=== PATIENT | female | born 2000 | race Caucasian/White ===

== ENCOUNTER → 2022-09-21 07:45 | Outpatient (BNVA) | payer SELFPAY | PROVIDERS: Visit Provider Obstetrics & Gynecology | DX: O09.90 Supervision of high risk pregnancy, unspecified, unspecified trimester (principal) | CPT/HCPCS: 80307; 81000; 85027; 86592; 86762; 86803; 86850; 86900; 87086; 87340; 87806 ==

== ENCOUNTER → 2022-09-28 10:07 | Outpatient (BNVA) | payer SELFPAY | PROVIDERS: Visit Provider Obstetrics & Gynecology | DX: Z36.89 Encounter for other specified antenatal screening (principal); Z3A.23 23 weeks gestation of pregnancy | CPT/HCPCS: 76805 ==

== ENCOUNTER → 2022-10-04 15:09 | Outpatient (BNVA) | payer SELFPAY | PROVIDERS: Visit Provider Obstetrics & Gynecology | DX: Z34.00 Encounter for supervision of normal first pregnancy, unspecified trimester (principal) | CPT/HCPCS: 81000 ==

== ENCOUNTER 2022-10-27 16:10 | Outpatient (CLI) | payer SELFPAY ==
[2022-10-27 16:48] VITALS: BP 129/75; PULSE 88
[2022-10-27 16:50] VITALS: RESP 16; TEMP 37
--- NOTE | 2022-10-27 16:50 | USR_ITS ---
PROCEDURE INFORMATION: Exam: US , Limited Exam date and time: 10/27/2022 5:09 PM Age: 22 years old Clinical indication: Lmp or gestational age (in weeks): 28w3d; Antepartum complications; Other: Decreased movement, add growth scan, measuring small; LABS AND CLINICAL REPORTS: Last menstrual period start date: 04/11/2022 Gestational age (Established): 28 w 3 d Estimated due date (Established): 01/16/2023 TECHNIQUE: Imaging protocol: Real-time ultrasound of the maternal uterus with image documentation. Exam focused on the clinical indication. COMPARISON: US OB >= 14 weeks fetus [id number] 09/28/2022 10:14 AM FINDINGS: Gestation: movement is visualized. heart rate: 141 bpm presentation: Breech presentation. Placenta: The placenta is posterior and unremarkable. BIOMETRY: Gestational age (AUA): 27 w 0 d. Single live intrauterine gestation with good cardiac activity and calculated gestational age of 27 weeks 0 days. Estimated weight: 1021 g, 54th percentile Biparietal diameter (BPD): 6.43 cm. EGA (BPD) is 26 w 0, less than 2%tile Head circumference (HC): 25.33 cm, 5th percentile. EGA (HC) is 27 w 4 d Abdominal circumference (AC): 22.91 cm. EGA (AC) is 27 w 2 d, 13th percentile Femur length (FL): 4.98 cm. EGA (FL) is 26 w 6 d Cephalic Index (CI): 69.4 % HC/AC: 1.11 FL/HC: 19.7 % FL/BPD: 77.4 % FL/AC: 21.7 % BIOPHYSICAL PROFILE: breathing movement (BPP): No breathing. MATERNAL: Cervix: Cervical length measures 3.26 cm. Other findings: Biophysical profile 08/10. US/US OB lmt w/ BPP wo NST IMPRESSION: 1. Single live intrauterine gestation with good cardiac activity and calculated gestational age of 27 weeks 0 days. 2. Biophysical profile 08/10. No breathing. 3. Breech presentation. Good movement.
[2022-10-27 16:56] VITALS: BMI 24.6
[2022-10-27 17:03] VITALS: BP 122/69; PULSE 89
== END 2022-10-27 18:30 | disposition home or self-care (01) ==
LOC: OPOB 16:21 → OBGYN 16:24
PROVIDERS: Visit Provider Obstetrics & Gynecology
DX: O36.8130 Decreased fetal movements, third trimester, not applicable or unspecified (principal); Z3A.28 28 weeks gestation of pregnancy; Z36.4 Encounter for antenatal screening for fetal growth retardation
CPT/HCPCS: 36415; 59025; 76815; 76819; 81000; 82950; 85025; 99211

== ENCOUNTER → 2022-11-08 08:40 | Outpatient (BNVA) | payer SELFPAY | PROVIDERS: Visit Provider Obstetrics & Gynecology | DX: Z34.00 Encounter for supervision of normal first pregnancy, unspecified trimester (principal) | CPT/HCPCS: 81000; 82951; 82952 ==

== ENCOUNTER 2022-11-20 02:31 | Outpatient (CLI) | payer SELFPAY ==
[2022-11-20] VITALS (23 sets, daily range): BP systolic 99–136; BP diastolic 51–76; PULSE 88–134; RESP 18–20
[2022-11-20 03:07] LABS: Add Urine Culture? No; Amorphous Sediment Urine 1+ /hpf; Bilirubin Urine Neg (Negative); Blood Urine Neg (Negative); Glucose Urine UA Norm (Normal); Ketones Urine 2+ (Negative); Leukocyte Esterase Urine Negative (Negative); Nitrate Urine Negative (Negative); Protein Urine Neg (Negative); Specific Gravity, Urine 1.015 (1.005-1.030); Urine Appearance Hazy (CLEAR); Urine Color Yellow (Yellow); Urobilinogen Urine Neg (Negative); pH Urine 9 (5-7)
[2022-11-20 03:10] LABS: Sulfosalicylic Acid Urine Negative (Negative)
[2022-11-20] MEDS: NIFEdipine 10 mg Capsule 30 MG PO (03:10)
[2022-11-20] MEDS: betamethasone susp 6 mg/mL 1 mL (per mL) 12 MG IM (03:11)
[2022-11-20] MEDS: lactated ringers 1,000 ML 125 ML IV (03:15)
[2022-11-20] MEDS: cefTRIAXone 1,000 MG in sodium chloride 0.9% (plus) 50 ML 100 MG IV (03:15)
[2022-11-20] MEDS: acetaminophen 500 mg Tablet 1000 MG PO (04:12)
[2022-11-20 04:48] LABS: Basophils % 0.3 %; Eosinophils % 0.1 %; Hematocrit 34.4 % (36-47); Lymphocytes # 1.7 10^3/uL (0.8-4.8); Lymphocytes % 11.8 %; Mean Corpuscular HGB Conc 34.3 g/dL (30-55); Mean Corpuscular Hemoglobin 30.4 pg (27-33); Mean Corpuscular Volume 88.7 fl (85-98); Mean Platelet Volume 9.6 fL (7.4-10.4); Monocytes # 1.1 10^3/uL (0.2-0.9); Monocytes % 7.6 %; Neutrophils # 11.33 10^3/uL (1.8-7.7); Neutrophils % 79.8 %; Nucleated Red Blood Cells % 0 %; Platelet Count 263 10^3/cmm (157-399); Red Blood Count 3.88 10^6/uL (3.85-5.65); Red Cell Distribution Width 12.1 % (12.1-15.1); White Blood Count 14.21 10^3/uL (3.29-11.43)
[2022-11-20] MEDS: magnesium sulfate premix 4 GM/100 ML PREMIX IV (05:01)
[2022-11-20] MEDS: magnesium sulfate premix 20 GM/500 ML BAG IV (05:21)
== END 2022-11-20 06:21 | disposition other institution (70) ==
LOC: OPOB 02:32 → OBGYN 02:33
PROVIDERS: Visit Provider Obstetrics & Gynecology
DX: O26.899 Other specified pregnancy related conditions, unspecified trimester (principal); Z3A.00 Weeks of gestation of pregnancy not specified; R10.30 Lower abdominal pain, unspecified
CPT/HCPCS: 51702; 59025; 81001; 85025; 96372; 99211; J0696; J0702; J3475; J7120

== ENCOUNTER → 2022-11-30 14:00 | Outpatient (BNVA) | payer SELFPAY | PROVIDERS: Visit Provider Obstetrics & Gynecology | DX: Z34.00 Encounter for supervision of normal first pregnancy, unspecified trimester (principal) | CPT/HCPCS: 81000 ==

== ENCOUNTER → 2022-12-07 14:18 | Outpatient (BNVA) | payer SELFPAY | PROVIDERS: Visit Provider Obstetrics & Gynecology | DX: Z34.00 Encounter for supervision of normal first pregnancy, unspecified trimester (principal) | CPT/HCPCS: 76816; 76820; 81000 ==

== ENCOUNTER → 2022-12-13 15:30 | Outpatient (BNVA) | payer SELFPAY | PROVIDERS: Visit Provider Obstetrics & Gynecology | DX: Z34.00 Encounter for supervision of normal first pregnancy, unspecified trimester (principal) | CPT/HCPCS: 81000 ==

== ENCOUNTER → 2022-12-20 16:00 | Outpatient (BNVA) | payer SELFPAY | PROVIDERS: Visit Provider Obstetrics & Gynecology | DX: Z34.00 Encounter for supervision of normal first pregnancy, unspecified trimester (principal) | CPT/HCPCS: 81000; 87081 ==

== ENCOUNTER → 2022-12-27 16:04 | Outpatient (BNVA) | payer SELFPAY | PROVIDERS: Visit Provider Nurse Practitioner Women's Health | DX: Z34.00 Encounter for supervision of normal first pregnancy, unspecified trimester (principal) | CPT/HCPCS: 81000 ==

== ENCOUNTER → 2023-01-03 14:55 | Outpatient (BNVA) | payer SELFPAY | PROVIDERS: Visit Provider Obstetrics & Gynecology | DX: Z34.00 Encounter for supervision of normal first pregnancy, unspecified trimester (principal) | CPT/HCPCS: 81000 ==

== ENCOUNTER 2023-01-06 05:26 | Inpatient (IN) | payer SELFPAY ==
[2023-01-06] VITALS (15 sets, daily range): BP systolic 107–135; BP diastolic 65–87; PULSE 72–96; RESP 16; TEMP 36.2; BMI 25.7
[2023-01-06 07:35] LABS: Basophils % 0.2 %; Eosinophils # 0.1 10^3/uL (0.0-0.8); Eosinophils % 0.5 %; Hematocrit 35.2 % (36-47); Lymphocytes # 2.9 10^3/uL (0.8-4.8); Lymphocytes % 25.9 %; Mean Corpuscular HGB Conc 33.8 g/dL (30-55); Mean Corpuscular Hemoglobin 29.8 pg (27-33); Mean Platelet Volume 9.7 fL (7.4-10.4); Monocytes # 0.9 10^3/uL (0.2-0.9); Monocytes % 7.8 %; Neutrophils # 7.22 10^3/uL (1.8-7.7); Neutrophils % 65.1 %; Nucleated Red Blood Cells % 0 %; Platelet Count 250 10^3/cmm (157-399); Red Cell Distribution Width 12.5 % (12.1-15.1); White Blood Count 11.07 10^3/uL (3.29-11.43)
--- NOTE | 2023-01-06 11:05 | P.HP_ITS ---
Providers/Chief Complaint Admitting Physician: Edgar Holly MD Primary GEAR CUTTING MACHINE SET UP OPERATOR: Edgar Holly MD Chief Complaint: Possible contractions HPI GEAR CUTTING MACHINE SET UP OPERATOR History of Present Illness 22 y.o. G1 Unknown LMP,? possibly April 11, 2022 EDC by unsure LMP??? January 16, 2023 Consistent with 23 week sono done September 28, 2022 At 38 w 4 d Presents to L&D c/o painful UCs No bleeding or fluid leakage Feels active movements Was transferred to [place] November 20, 2022 at 32 weeks for labor Was in hospital there for five days Cervix was 3.5 cm at discharge Was told to do accuchecks All accucheck values normal Present Details : 1 Para: 0 Medications/Allergies Home Medications Medication Instructions Recorded Confirmed Last Taken Type vitamin no.102-iron 90 1 cap PO DAILY 10/27/22 01/06/23 1 Day Ago History mg-folate 1 mg-dha 200 mg capsule ~01/05/23 Allergies Allergy/AdvReac Type Severity Reaction Status Date / Time N/A Allergy N/A Uncoded 01/03/23 14:57 PFSH GEAR CUTTING MACHINE SET UP OPERATOR PFSH: Medical History No pertinent past medical history neghx:htn,dm,thyroid,dvt/pe PCP: none Surgical History No pertinent past surgical history Family History Denies family history of Colon cancer Ovarian cancer Diabetes Heart disease Hyperlipidemia Breast cancer Hypertension Uterine cancer Thyroid disease Stroke History History History 1 Term Miscarriages/Ectopic Living Children Care KIANA Calculator Estimated Delivery Date Method Current WG Current Estimate 01/16/23 LMP (Uncertain) 38w 4d Other Estimates 01/24/23 Ultrasound #1 37w 3d Specific Issues/Plans * LATE TO CARE- care began at 23wk * RUBELLA NONIMMUNE- recommend PP vaccination * UTERINE SIZE/DATE DISCREPANCY Vitals/I&O/Wt Last Vital Signs Temp 97.2 F L 01/06/23 05:44 Pulse 81 01/06/23 14:20 Resp 16 01/06/23 07:20 BP 120/69 01/06/23 14:20 Weight last 48 hrs Weight 132 lb Physical Exam Narrative: Weight ? 130?? lbs;? 5? VS? normal Awake, alert, appropriate Lungs:? clear Cor:? RRR FH? 32 cm Cervix:? 4 cm / 90 / -1 / mid External monitor:? heart tracing good variability,? + accelerations Data 01/06/23 07:05 Results Labs OB ([facility]): Obstetrics US 12/07/22 Obstetrics US/Biophysical Profile Blood Type A Positive 09/21/22 Antibody Screen Negative 09/21/22 Hct 35.2 % (36-47) L 01/06/23 Hgb 11.90 g/dL (11.27-16.99) 01/06/23 Rho(D) Type Positive 09/21/22 Plt Count 250 10^3/cmm (157-399) 01/06/23 Hep Bs Antigen Non-reactive (Nonreactive) 09/21/22 Hepatitis C Antibody Non-reactive (Nonreactive) 09/21/22 Rubella IgG Antibody 0.2 IU/mL (0.0-10.0) 09/21/22 RPR Nonreactive (Nonreactive) 09/21/22 HIV 1&2 Ab & HIV 1 Ag Non-reactive (Non-Reactiv) 09/21/22 Gest Glucose Tolerance mg/dL 11/08/22 Urine Opiates Screen Negative ng/mL (Negative) 09/21/22 Ur Barbiturates Screen Negative ng/mL (Negative) 09/21/22 Ur Phencyclidine Scrn Negative ng/mL (Negative) 09/21/22 Ur Amphetamines Screen Negative ng/mL (Negative) 09/21/22 U Benzodiazepines Scrn Negative ng/mL (Negative) 09/21/22 Urine Cocaine Screen Negative ng/mL (Negative) 09/21/22 U Marijuana (THC) Screen Negative ng/mL (Negative) 09/21/22 Micro Urine Specimen 07/20/23 A&P Assessment and plan (1) Uterine contractions: 38 w 4 d Fetus reassuring Cx at 4 cm / -1 station Active labor Will admit Expectant management Attestations Medical Necessity Statement*: patient at 38 w 4 d, painful contractions, cervix at 4 cm Coding Level of Care Code Acute Code for Chg Fwd Diagnoses Uterine contractions O47.9 Time Spent (min) 30
--- NOTE | 2023-01-06 13:35 | PM.OBGYPN ---
DORMITORY SUPERVISOR Subjective Subjective: Interval history: January 06, 2023, 1335 Fetus reassuring UCs now occasional Patient comfortable, reports not having UCs Cervix by me:? 4 cm / 90 / -1 / mid Discussed with patient options of ? Waiting in hospital to see if she will progress ? Discharge home, which I do not recommend, since she is 4 cm dilated with ? head firmly in pelvis ? start labor augmentation such as artificial rupture of membranes and / or ? IV Pitocin Patient wants to wait in hospital Plan continue expectant management Labor: Station: 0 Amniotic Membrane Status: Intact Monitor Mode: External Contraction Pattern: Irregular Vitals/I&O/Wt Last Vital Signs Temp 97.2 F L 01/06/23 05:44 Pulse 81 01/06/23 14:20 Resp 16 01/06/23 07:20 BP 120/69 01/06/23 14:20 Weight last 48 hrs Weight 132 lb Data 01/06/23 07:05 A&P Assessment and plan (1) Uterine contractions: Attestations Medical Necessity Statement*: patient at 38 w 4 d, presented with painful contractions, cervix at 4 cm Coding Level of Care Code Acute Code for Chg Fwd Diagnoses Uterine contractions O47.9 Time Spent (min) 30
[2023-01-06] MEDS: acetaminophen 325 mg Tablet 650 MG PO (22:50)
[2023-01-07 01:29] VITALS: BP 112/70; PULSE 94
[2023-01-07 04:32] VITALS: BP 119/70; PULSE 92
[2023-01-07 09:56] VITALS: BP 119/70; PULSE 85
[2023-01-07 10:13] VITALS: BP 123/83; PULSE 86
--- NOTE | 2023-01-07 10:20 | P.PN_ITS ---
TAILINGS WORKER Subjective Subjective: Interval history: Fetus reassuring Occasional mild uterine contractions Cervix:?4 -5 cm / 90 / -1 Patient wants to go home I counseled patient that I personally would not recommend going home.? I would recommend augmenting labor.? Patient does not want labor augmentation. plan discharge home. Instructions given to return if contractions strong and regular, or if fluid leakage or bleeding Patient has f/u appointment for January 10, 2023 Labor: Station: 0 Amniotic Membrane Status: Intact Monitor Mode: External Contraction Pattern: Irregular Vitals/I&O/Wt Last Vital Signs Temp 97.2 F L 01/06/23 05:44 Pulse 86 01/07/23 10:13 Resp 16 01/06/23 07:20 BP 123/83 01/07/23 10:13 O2 Del Method Room Air 01/06/23 07:30 Weight last 48 hrs Weight 132 lb Data 01/06/23 07:05 A&P Assessment and plan (1) Uterine contractions: Attestations Medical Necessity Statement*: patient with mild uterine contractions, cervix has been stable at 4-5 cm, pa tient does not want labor augmentation, wants to go home. plan discharge home. Coding Level of Care Code Acute Code for Chg Fwd Diagnoses Uterine contractions O47.9 Time Spent (min) 30
--- NOTE | 2023-01-07 11:05 | P.DS_ITS ---
Discharge Providers WOOD FLOORING SPECIALIST Date of Admission: 01/06/23 05:26 Date of Discharge: 01/07/23 Attending Provider at Admission: Edgar Holly MD Attending Provider at Discharge: Edgar Holly MD Consults: none Primary WOOD FLOORING SPECIALIST: Edgar Holly MD Diagnoses at Discharge Discharge Diagnosis (1) Uterine contractions: Details from hospital stay: patient admitted with uterine contractions and cervix at 4 cm / 90 / -1 patient's uterine contractions decreased in frequency and intensity cervix remained at 4-5 cm patient refused labor augmentation fetus reassuring throughout patient wanted to go home patient was discharged home with labor precautions. Status: Acute Reason for Visit Reason for Visit: Possible contractions Brief History: 22 y.o. EDC January 16, 2023 Hospital Course Hospital Course patient admitted with uterine contractions and cervix at 4 cm / 90 / -1 patient's uterine contractions decreased in frequency and intensity cervix remained at 4-5 cm patient refused labor augmentation fetus reassuring throughout patient wanted to go home patient was discharged home with labor precautions. History History History 1 Term Miscarriages/Ectopic Living Children Discharge Data Studies Completed and Pending Laboratory Results WBC 11.07 10^3/uL (3.29-11.43) 01/06/23 07:05 RBC 4.00 10^6/uL (3.85-5.65) 01/06/23 07:05 Hgb 11.90 g/dL (11.27-16.99) 01/06/23 07:05 Hct 35.2 % (36-47) L 01/06/23 07:05 MCV 88.0 fl (85-98) 01/06/23 07:05 MCH 29.8 pg (27-33) 01/06/23 07:05 MCHC 33.8 g/dL (30-55) 01/06/23 07:05 RDW 12.5 % (12.1-15.1) 01/06/23 07:05 Plt Count 250 10^3/cmm (157-399) 01/06/23 07:05 MPV 9.7 fL (7.4-10.4) 01/06/23 07:05 Neut % (Auto) 65.1 % 01/06/23 07:05 Lymph % (Auto) 25.9 % 01/06/23 07:05 [place] % (Auto) 7.8 % 01/06/23 07:05 Eos % (Auto) 0.5 % 01/06/23 07:05 Baso % (Auto) 0.2 % 01/06/23 07:05 Neut # (Auto) 7.22 10^3/uL (1.8-7.7) 01/06/23 07:05 Lymph # (Auto) 2.9 10^3/uL (0.8-4.8) 01/06/23 07:05 [place] # (Auto) 0.9 10^3/uL (0.2-0.9) 01/06/23 07:05 Eos # (Auto) 0.1 10^3/uL (0.0-0.8) 01/06/23 07:05 Baso # (Auto) 0.0 10^3/uL (0.0-0.1) 01/06/23 07:05 Nucleated RBC % (auto) 0 % 01/06/23 07:05 Nucleated RBCs # 0.0 /100WBC 01/06/23 07:05 Procedures Performed monitoring Vitals Last Vital Signs Temp 97.2 F L 01/06/23 05:44 Pulse 86 01/07/23 10:13 Resp 16 01/06/23 07:20 BP 123/83 01/07/23 10:13 O2 Del Method Room Air 01/06/23 07:30 Results Labs OB ([facility]): Obstetrics US 12/07/22 Obstetrics US/Biophysical Profile Blood Type A Positive 09/21/22 Antibody Screen Negative 09/21/22 Hct 35.2 % (36-47) L 01/06/23 Hgb 11.90 g/dL (11.27-16.99) 01/06/23 Rho(D) Type Positive 09/21/22 Plt Count 250 10^3/cmm (157-399) 01/06/23 Hep Bs Antigen Non-reactive (Nonreactive) 09/21/22 Hepatitis C Antibody Non-reactive (Nonreactive) 09/21/22 Rubella IgG Antibody 0.2 IU/mL (0.0-10.0) 09/21/22 RPR Nonreactive (Nonreactive) 09/21/22 HIV 1&2 Ab & HIV 1 Ag Non-reactive (Non-Reactiv) 09/21/22 Gest Glucose Tolerance mg/dL 11/08/22 Urine Opiates Screen Negative ng/mL (Negative) 09/21/22 Ur Barbiturates Screen Negative ng/mL (Negative) 09/21/22 Ur Phencyclidine Scrn Negative ng/mL (Negative) 09/21/22 Ur Amphetamines Screen Negative ng/mL (Negative) 09/21/22 U Benzodiazepines Scrn Negative ng/mL (Negative) 09/21/22 Urine Cocaine Screen Negative ng/mL (Negative) 09/21/22 U Marijuana (THC) Screen Negative ng/mL (Negative) 09/21/22 Micro Urine Specimen 09/21/22 Discharge Plan Discharge Patient Disposition: Home, Self-Care w Plan Readm Condition: Stable Prescriptions: Continued PNV 096-nzzz-sxykji-dha 90 mg iron- 1 mg-200 mg capsule 1 cap PO DAILY Discharge Orders: Discharge Order (Routine); Ordered 01/07/23 Ordered By: Edgar Holly Discharge Diet: Usual diet Discharge Activity: Resume usual activity Patient Instructions: Opioid Safety, OB Undelivered Discharge Discharge Attestations WOOD FLOORING SPECIALIST Time Spent in Discharge Care*: greater than 30 min Coding Level of Care Code Acute Code for Chg Fwd Diagnoses Uterine contractions O47.9 Time Spent (min) 40
[2023-01-07 11:50] VITALS: BP 123/83; PULSE 86
== END 2023-01-07 11:00 | disposition home or self-care (01) | DRG 833 ==
LOC: OBGYN 07:27 → OPOB 07:30 → OBGYN 07:31
PROVIDERS: Admitting Provider Obstetrics & Gynecology; Visit Provider Obstetrics & Gynecology
DX: O47.1 False labor at or after 37 completed weeks of gestation (principal); Z3A.38 38 weeks gestation of pregnancy
CPT/HCPCS: 36415; 59025; 85025; 99211

== ENCOUNTER 2023-01-07 22:15 | Inpatient (IN) | payer SELFPAY ==
[2023-01-07 17:32] VITALS: RESP 16; BMI 25.7
[2023-01-07 20:24] VITALS: TEMP 36.9
[2023-01-07 20:26] VITALS: BP 109/60; PULSE 81
[2023-01-07 21:52] VITALS: BP 137/85; PULSE 96
[2023-01-07 22:35] LABS: Basophils % 0.2 %; Eosinophils % 0.3 %; Hematocrit 35.3 % (36-47); Lymphocytes # 3.4 10^3/uL (0.8-4.8); Lymphocytes % 28.9 %; Mean Corpuscular HGB Conc 33.4 g/dL (30-55); Mean Corpuscular Hemoglobin 29.6 pg (27-33); Mean Corpuscular Volume 88.5 fl (85-98); Mean Platelet Volume 9.9 fL (7.4-10.4); Monocytes # 0.8 10^3/uL (0.2-0.9); Neutrophils # 7.49 10^3/uL (1.8-7.7); Neutrophils % 63.1 %; Nucleated Red Blood Cells % 0 %; Platelet Count 275 10^3/cmm (157-399); Red Blood Count 3.99 10^6/uL (3.85-5.65); Red Cell Distribution Width 12.6 % (12.1-15.1); White Blood Count 11.85 10^3/uL (3.29-11.43)
--- NOTE | 2023-01-07 22:48 | PM.OBGYHP ---
Providers/Chief Complaint Admitting Physician: Edgar Holly MD Primary SHIFT SUPERVISOR FILM PROCESSING: Edgar Holly MD Chief Complaint: Contractions HPI SHIFT SUPERVISOR FILM PROCESSING History of Present Illness 22 y.o. G1 Unknown LMP, possibly April 11, 2022 EDC by unsure LMP January 16, 2023 Consistent with 23 week sono done September 28, 2022 At 38 w 5 d Again presents to L&D c/o painful UCs No bleeding or fluid leakage Feels active movements Patient was here yesterday and earlier today for uterine contractions Fetus has been reassuring throughout Cervix remained at 4-5 cm / 90 / -1 station Patient did not want any interventions, such as rupture of membranes or Pitocin augmentation Patient requested to go home She was discharged today mid-afternoon Returns now c/o more painful UCs Present Details : 1 Para: 0 Medications/Allergies Home Medications Medication Instructions Recorded Confirmed Last Taken Type vitamin no.102-iron 90 1 cap PO DAILY 10/27/22 01/06/23 1 Day Ago History mg-folate 1 mg-dha 200 mg capsule ~01/05/23 Allergies Allergy/AdvReac Type Severity Reaction Status Date / Time N/A Allergy N/A Uncoded 01/03/23 14:57 PFSH SHIFT SUPERVISOR FILM PROCESSING PFSH: Medical History No pertinent past medical history neghx:htn,dm,thyroid,dvt/pe PCP: none Surgical History No pertinent past surgical history Family History Denies family history of Colon cancer Ovarian cancer Diabetes Heart disease Hyperlipidemia Breast cancer Hypertension Uterine cancer Thyroid disease Stroke History History History 1 Term Miscarriages/Ectopic Living Children Care KIANA Calculator Estimated Delivery Date Method Current WG Current Estimate 01/16/23 LMP (Uncertain) 38w 5d Other Estimates 01/24/23 Ultrasound #1 37w 4d Specific Issues/Plans LATE TO CARE- care began at 23wk RUBELLA NONIMMUNE- recommend PP vaccination UTERINE SIZE/DATE DISCREPANCY Vitals/I&O/Wt Last Vital Signs Temp 98.4 F 01/07/23 20:24 Pulse 96 01/07/23 21:52 Resp 16 01/07/23 17:32 BP 137/85 01/07/23 21:52 O2 Del Method Room Air 01/07/23 20:25 Weight last 48 hrs Weight 132 lb Physical Exam Narrative: Weight 130 lbs; 5? VS normal Awake, alert, appropriate Lungs: clear Cor: RRR FH 32 cm Cervix: 5 cm / 90 / -1 / mid External monitor: heart tracing good variability, + accelerations Data 01/07/23 22:20 Results Labs OB ([facility]): Obstetrics US 12/07/22 Obstetrics US/Biophysical Profile 10/27/22 Blood Type A Positive 09/21/22 Antibody Screen Negative 09/21/22 Hct 35.3 % (36-47) L 01/07/23 Hgb 11.80 g/dL (11.27-16.99) 01/07/23 Rho(D) Type Positive 09/21/22 Plt Count 275 10^3/cmm (157-399) 01/07/23 Hep Bs Antigen Non-reactive (Nonreactive) 09/21/22 Hepatitis C Antibody Non-reactive (Nonreactive) 09/21/22 Rubella IgG Antibody 0.2 IU/mL (0.0-10.0) 09/21/22 RPR Nonreactive (Nonreactive) 09/21/22 HIV 1&2 Ab & HIV 1 Ag Non-reactive (Non-Reactiv) 09/21/22 Gest Glucose Tolerance mg/dL 11/08/22 Urine Opiates Screen Negative ng/mL (Negative) 09/21/22 Ur Barbiturates Screen Negative ng/mL (Negative) 09/21/22 Ur Phencyclidine Scrn Negative ng/mL (Negative) 09/21/22 Ur Amphetamines Screen Negative ng/mL (Negative) 09/21/22 U Benzodiazepines Scrn Negative ng/mL (Negative) 09/21/22 Urine Cocaine Screen Negative ng/mL (Negative) 09/21/22 U Marijuana (THC) Screen Negative ng/mL (Negative) 09/21/22 Micro Urine Specimen 09/21/22 A&P Assessment and plan (1) Uterine contractions: 38 w 5 d Fetus reassuring Active labor Plan expectant management Attestations Medical Necessity Statement*: patient at 38 w 5 d, with painful uterine contractions Coding Level of Care Code Acute Code for Chg Fwd Diagnoses Uterine contractions O47.9 Time Spent (min) 40
--- NOTE | 2023-01-07 22:50 | PM.OBGYPN ---
DINING CAR CONDUCTOR Subjective Subjective: Interval history: January 07, 2023, 2209 Patient requests rupture of membranes Fetus reassuring Cervix: 6-7 cm / 100% / -1 station / BBOW AROM, clear fluid Labor: Amniotic Membrane Status: Ruptured Monitor Mode: External Contraction Pattern: Irregular Vitals/I&O/Wt Last Vital Signs Temp 98.4 F 01/07/23 20:24 Pulse 96 01/07/23 21:52 Resp 16 01/07/23 17:32 BP 137/85 01/07/23 21:52 O2 Del Method Room Air 01/07/23 20:25 Weight last 48 hrs Weight 132 lb Data 01/07/23 22:20 A&P Assessment and plan (1) Uterine contractions: patient at 6-7 cm dilatation s/p artificial rupture of membranes Attestations Medical Necessity Statement*: patient at 38 w 5 d, with active labor Coding Level of Care Code Acute Code for Chg Fwd Diagnoses Uterine contractions O47.9 Time Spent (min) 30
[2023-01-07 23:34] VITALS: BP 163/68; PULSE 95
[2023-01-07 23:49] VITALS: BP 123/73; PULSE 94
[2023-01-08] VITALS (13 sets, daily range): BP systolic 111–142; BP diastolic 61–80; PULSE 68–114; RESP 16; TEMP 36.5–36.7; O2SAT 97
--- NOTE | 2023-01-08 01:05 | P.PN_ITS ---
AIR DRILL OPERATOR Subjective Subjective: Interval history: January 08, 2023, 0015 DELIVERY NOTE , vigorous female Normal placenta and cord Cord gases and blood obtained Third-degree perineal laceration, irregular and jagged, repaired in layers EBL: 400 cc No complications Labor: Amniotic Membrane Status: Ruptured Monitor Mode: External Contraction Pattern: Irregular Vitals/I&O/Wt Last Vital Signs Temp 98.4 F 01/07/23 20:24 Pulse 100 01/08/23 00:49 Resp 16 01/07/23 17:32 BP 141/77 01/08/23 00:49 O2 Del Method Room Air 01/07/23 20:25 Weight last 48 hrs Weight 132 lb Data 01/07/23 22:20 A&P Assessment and plan (1) Vaginal delivery: (2) Third degree perineal laceration: Attestations Medical Necessity Statement*: patient at 38 w 5 d, presented with active labor. Vaginal delivery with repair of perineal laceration. Coding Level of Care Code Acute Code for Chg Fwd Diagnoses Vaginal delivery O80 Third degree perineal laceration O70.20 Time Spent (min) 60
--- NOTE | 2023-01-08 01:07 | PM.DELIVERY ---
Delivery Note: Date of delivery: January 08, 2023 Pre-delivery diagnoses: 38 w 5 d active labor Post-delivery diagnoses: spontaneous vaginal delivery third-degree perineal laceration, repaired Procedure: spontaneous vaginal delivery repair of third-degree perineal laceration Op report anesthesia: Local and None Delivering Physician: Edgar Holly MD Estimated blood loss (mL): 400 Findings: , vigorous female infant Normal placenta and cord Cord gases and blood obtained Third-degree perineal laceration, irregular and jagged, repaired in layers EBL: 400 cc No complications Delivery: vaginal Post-Delivery Status: good History History History 1 Term Miscarriages/Ectopic Living Children A&P Assessment and plan (1) Vaginal delivery: (2) Third degree perineal laceration: Coding Level of Care Code Acute Code for Chg Fwd Diagnoses Vaginal delivery O80 Third degree perineal laceration O70.20 Time Spent (min) 60
[2023-01-08] MEDS: acetaminophen 325 mg Tablet 650 MG PO (02:29)
[2023-01-08] MEDS: HYDROcodone-acetaminophen 5-325 mg Tablet PO (05:24)
[2023-01-08] MEDS: prenatal vitamin Capsule 1 CAP PO (09:15)
[2023-01-08] MEDS: docusate sodium 100 mg Capsule PO (09:15)
[2023-01-08] MEDS: ibuprofen 800 mg tablet PO ×3 (09:15→22:36)
[2023-01-08 15:47] LABS: Hematocrit 34.5 % (36-47); Mean Corpuscular HGB Conc 33.6 g/dL (30-55); Mean Corpuscular Volume 89.1 fl (85-98); Mean Platelet Volume 10.2 fL (7.4-10.4); Platelet Count 248 10^3/cmm (157-399); Red Blood Count 3.87 10^6/uL (3.85-5.65); White Blood Count 11.36 10^3/uL (3.29-11.43)
--- NOTE | 2023-01-08 20:39 | PM.OBGYPN ---
STAMP ANALYST Subjective Subjective: Interval history: no c/o no bleeding, pain eating, voiding, ambulating well caring for without any problems Labor: Amniotic Membrane Status: Ruptured Monitor Mode: External Contraction Pattern: Irregular Vitals/I&O/Wt Last Vital Signs Temp 98.0 F 01/08/23 16:28 Pulse 68 01/08/23 16:28 Resp 16 01/07/23 17:32 BP 116/78 01/08/23 16:28 Pulse Ox 97 01/08/23 03:08 O2 Del Method Room Air 01/08/23 16:28 Weight last 48 hrs Weight 132 lb Physical Exam Narrative: afebrile, VS normal comfortable, awake, alert Abd: soft, nontender. fundus firm Ext: no edema; nontender Data 01/08/23 13:32 A&P Assessment and plan (1) Vaginal delivery: PPD #1 , repair of third-degree perineal laceration doing well discharge home today instructions and precautions given call/return if fever, chills, headache, blurry vision, nausea, vomiting, abdominal pain; vaginal bleeding or discharge; shortness of breath, chest pain, leg pains or swelling; inability to void, perineal pain or swelling; feelings of depression or mood changes; thoughts of suicide or harming others; inability to care for baby. f/u in one week or PRN (2) Third degree perineal laceration: Attestations Medical Necessity Statement*: patient s/p , repair of perineal laceration; plan discharge home today Coding Level of Care Code Acute Code for Chg Fwd Diagnoses Vaginal delivery O80 Third degree perineal laceration O70.20 Time Spent (min) 20
--- NOTE | 2023-01-08 20:59 | PM.OBGYDC ---
Discharge Providers SECURITY INSPECTOR Date of Admission: 01/07/23 22:15 Date of Discharge: 01/08/23 Attending Provider at Admission: Edgar Holly MD Attending Provider at Discharge: Edgar Holly MD Consults: none Primary SECURITY INSPECTOR: Edgar Holly MD Diagnoses at Discharge Discharge Diagnosis (1) Vaginal delivery: Details from hospital stay: patient admitted with spontaneous labor, cervix at 5 cm patient progressed to complete delivered vaginally had repair of third-degree perineal laceration did well Status: Acute (2) Third degree perineal laceration: Status: Acute Reason for Visit Reason for Visit: Contractions Brief History: 22 y.o. G1 at term presented with painful UCs Hospital Course Hospital Course patient admitted with spontaneous labor, cervix at 5 cm patient progressed to complete delivered vaginally had repair of third-degree perineal laceration did well Information Peripartum Data: Delivery Method: Vaginal Physical Exam Const: COMMON NORMALS: no acute distress, average body habitus, patient oriented x3, no limitations, healthy appearing, alert and well nourished Resp: COMMON NORMALS: normal respiratory effort and clear to auscultation bilaterally AUSCULTATION: clear to auscultation bilaterally Cardio: COMMON NORMALS: regular rate and regular rhythm RATE: regular rate RHYTHM: regular rhythm GI: COMMON NORMALS: Normal to inspection, nondistended, normoactive bowel sounds present, Soft to palpation and non-tender PALPATION: Yes Soft to palpation Extremity: COMMON NORMALS: normal to inspection and no calf tenderness Neuro: COMMON NORMALS: patient oriented x3 SENSORIUM/ORIENTATION: Yes alert History History History 1 Term Miscarriages/Ectopic Living Children Discharge Data Studies Completed and Pending Laboratory Results WBC 11.36 10^3/uL (3.29-11.43) 01/08/23 13:32 RBC 3.87 10^6/uL (3.85-5.65) 01/08/23 13:32 Hgb 11.60 g/dL (11.27-16.99) 01/08/23 13:32 Hct 34.5 % (36-47) L 01/08/23 13:32 MCV 89.1 fl (85-98) 01/08/23 13:32 MCH 30.0 pg (27-33) 01/08/23 13:32 MCHC 33.6 g/dL (30-55) 01/08/23 13:32 RDW 13.0 % (12.1-15.1) 01/08/23 13:32 Plt Count 248 10^3/cmm (157-399) 01/08/23 13:32 MPV 10.2 fL (7.4-10.4) 01/08/23 13:32 Neut % (Auto) 63.1 % 01/07/23 22:20 Lymph % (Auto) 28.9 % 01/07/23 22:20 [place] % (Auto) 7.0 % 01/07/23 22:20 Eos % (Auto) 0.3 % 01/07/23 22:20 Baso % (Auto) 0.2 % 01/07/23 22:20 Neut # (Auto) 7.49 10^3/uL (1.8-7.7) 01/07/23 22:20 Lymph # (Auto) 3.4 10^3/uL (0.8-4.8) 01/07/23 22:20 [place] # (Auto) 0.8 10^3/uL (0.2-0.9) 01/07/23 22:20 Eos # (Auto) 0.0 10^3/uL (0.0-0.8) 01/07/23 22:20 Baso # (Auto) 0.0 10^3/uL (0.0-0.1) 01/07/23 22:20 Nucleated RBC % (auto) 0 % 01/07/23 22:20 Nucleated RBCs # 0.0 /100WBC 01/07/23 22:20 Blood Type A Positive 01/07/23 22:20 Rho(D) Type Positive 01/07/23 22:20 Antibody Screen Negative 01/07/23 22:20 Procedures Performed vaginal delivery repair of third-degree perineal laceration Vitals Last Vital Signs Temp 98.0 F 01/08/23 16:28 Pulse 68 01/08/23 16:28 Resp 16 01/07/23 17:32 BP 116/78 01/08/23 16:28 Pulse Ox 97 01/08/23 03:08 O2 Del Method Room Air 01/08/23 16:28 Results Labs OB ([facility]): Obstetrics US 12/07/22 Obstetrics US/Biophysical Profile 10/27/22 Blood Type A Positive 01/07/23 Antibody Screen Negative 01/07/23 Hct 34.5 % (36-47) L 01/08/23 Hgb 11.60 g/dL (11.27-16.99) 01/08/23 Rho(D) Type Positive 01/07/23 Plt Count 248 10^3/cmm (157-399) 01/08/23 Hep Bs Antigen Non-reactive (Nonreactive) 09/21/22 Hepatitis C Antibody Non-reactive (Nonreactive) 09/21/22 Rubella IgG Antibody 0.2 IU/mL (0.0-10.0) 09/21/22 RPR Nonreactive (Nonreactive) 09/21/22 HIV 1&2 Ab & HIV 1 Ag Non-reactive (Non-Reactiv) 09/21/22 Gest Glucose Tolerance mg/dL 11/08/22 Urine Opiates Screen Negative ng/mL (Negative) 09/21/22 Ur Barbiturates Screen Negative ng/mL (Negative) 09/21/22 Ur Phencyclidine Scrn Negative ng/mL (Negative) 09/21/22 Ur Amphetamines Screen Negative ng/mL (Negative) 09/21/22 U Benzodiazepines Scrn Negative ng/mL (Negative) 09/21/22 Urine Cocaine Screen Negative ng/mL (Negative) 09/21/22 U Marijuana (THC) Screen Negative ng/mL (Negative) 09/21/22 Micro Urine Specimen 09/21/22 Discharge Plan Discharge Patient Disposition: Home Condition: Stable Prescriptions: Continued PNV [id number] 90 mg iron- 1 mg-200 mg capsule 1 cap PO DAILY Discharge Orders: Discharge Order (Routine); Ordered 01/08/23 Ordered By: Edgar Holly Referrals: Edgar Holly MD [Physician] - 01/17/23 12:15 pm (01/17 @ 12:15) Discharge Diet: Usual diet Discharge Activity: Resume usual activity Patient Instructions: Opioid Safety Discharge Attestations SECURITY INSPECTOR Time Spent in Discharge Care*: less than 30 min Coding Level of Care Code Acute Code for Chg Fwd Diagnoses Vaginal delivery O80 Third degree perineal laceration O70.20 Time Spent (min) 20
[2023-01-08] MEDS: lanolin oint 7 gm 1 APPLIC TOPICAL (23:30)
== END 2023-01-08 23:55 | disposition home or self-care (01) | DRG 768 ==
LOC: OPOB 22:16 → OBGYN 22:16
PROVIDERS: Admitting Provider Obstetrics & Gynecology; Visit Provider Obstetrics & Gynecology
DX: O70.20 Third degree perineal laceration during delivery, unspecified (principal); Z37.0 Single live birth; Z3A.38 38 weeks gestation of pregnancy
CPT/HCPCS: 36415; 59025; 59409; 85025; 85027; 86850; 86900; 99211